=== PATIENT | female | born 1985 | race Caucasian/White ===

== ENCOUNTER 2019-02-18 12:12 | Emergency (ER) | payer BC ==
--- OUTSIDE RECORDS SUMMARY | 2019-02-18 12:56 | XMS REPORT | Summary of Care ---
:1985 Author Organization [facility] Address [address] [facility] [address] [address] Care Team Providers Name Role Phone Chika Calle [facility] Primary Care Provider Reason for Referral Refer to Department Only (Routine) Status Reason Specialty Diagnoses / Procedures Referred By Referred To Contact Contact Closed Physical Therapy Diagnoses Lumbar back pain with radiculopathy affecting right lower extremity Chika Calle [facility] [address] [place] [address] MRI/CAT/PET Scan (Routine) Status Reason Specialty Diagnoses / Referred By Referred To Procedures Contact Contact Pending Review Diagnoses Lumbar back pain with radiculopathy affecting right lower extremity Chelsi Calle MR LUMBAR SPINE WO CONTRAST Chika [facility] [address] [facility] [address] [place], [place] [id number] Refer to Department Only (Routine) Status Reason Specialty Diagnoses / Referred By Referred To Procedures Contact Contact Authorized NEUROSURGERY / Diagnoses Lumbar back pain with radiculopathy affecting right lower extremity DENY Calle, Calvin [facility] [id number] [place], [place] Phone: [phone] Scheduling Instructions To refer a patient to the [facility] please call [phone] Please have the following ready: -Symptoms of patient being referred -Recent films if available, NOT REQUIRED! -Known prior sugeries Reason for Visit Reason Comments Back Pain Pain goes down right leg Encounter Details Date Type Department Care Team Description 01/17/2019 Office Visit [facility] [place], Lumbar back pain with radiculopathy affecting right lower extremity (Primary Dx); [address] Chika, NURSING TECH-BC Situational [place] [address] [address] [phone] [address] [place] [address] [phone] Allergies No Known Allergiesdocumented as of this encounter (statuses as of 01/17/2019) Medications Medication Sig Dispensed Refills Start Date End Date Status HYDROcodone-Ibupro Take 1 Tab by 10 Tab 0 11/14/2018 Active fen (VICOPROFEN) mouth EVERY 7.5-200 MG Oral SIX HOURS TabIndications: NEEDED Oral abscess (dental pain). Max Daily Amount: 4 Tabs. methocarbamol Take 1 Tab by 40 Tab 0 01/17/2019 Active (ROBAXIN) 500 MG mouth THREE Oral TIMES DAILY TabIndications: NEEDED Lumbar back pain (low back with radiculopathy pain). affecting right lower extremity predniSONE Take 1 Tab by 30 Tab 0 01/17/2019 Active (DELTASONE) 10 MG mouth 9 Oral DIRECTED for TabIndications: 12 days. 4 Lumbar back pain tabs X 3 with radiculopathy days,3 tabs X affecting right 3 days,2 tabs lower extremity X 3 days,1 tab X 3 days.Take with food. escitalopram Take 1 Tab by 30 Tab 3 01/17/2019 Active (LEXAPRO) 20 MG mouth DAILY. Oral TabIndications: Situational depression escitalopram Take 1 Tab by 30 Tab 5 11/01/2018 Discontinued (LEXAPRO) 10 MG mouth DAILY. 9 (Reorder) Oral TabIndications: Situational depression AMOXICILLIN Take by 0 Discontinued POIndications: mouth TWICE 9 (Patient stopped Oral abscess DAILY. the medication) Clindamycin HCl Take 1 Cap by 30 Cap 0 11/14/2018 Discontinued 300 MG Oral mouth THREE 9 (Patient stopped CapIndications: TIMES DAILY. the medication) Oral abscess documented as of this encounter (statuses as of 01/17/2019) Active Problems Problem Noted Date BMI 30.0-30.9,adult 10/22/2017 documented as of this encounter (statuses as of 01/17/2019) Resolved Problems Problem Noted Date Resolved Date Injury, other and unspecified, unspecified site 11/04/2004 03/10/2016 documented as of this encounter (statuses as of 01/17/2019) Social History Tobacco Use Types Packs/Day Years Used Date Former Smoker Cigarettes Quit: 10/23/2011 Smokeless Tobacco: Never Used Tobacco Cessation: Counseling Given: No Alcohol Use Drinks/Week oz/Week Comments Yes ocasionally socially Sex Assigned at Date Recorded Not on file Job Start Date Occupation Industry Not on file Not on file Not on file Travel History Travel Start Travel End No recent travel history available. documented as of this encounter Last Filed Vital Signs Vital Sign Reading Time Taken Comments Blood Pressure 130/86 01/17/2019 11:35 AM EST Pulse 103 01/17/2019 11:35 AM EST Temperature 36.7 01/17/2019 11:35 AM EST C (98.1 F) Respiratory Rate 18 01/17/2019 11:35 AM EST Oxygen Saturation 96% 01/17/2019 11:35 AM EST Inhaled Oxygen Concentration - - Weight 85.5 kg (188 lb 9.6 oz) 01/17/2019 11:35 AM EST Height 162.6 cm (5' 4") 01/17/2019 11:35 AM EST Body Mass Index 32.37 01/17/2019 11:35 AM EST documented in this encounter Patient Instructions Patient InstructionsChika Calle NURSING TECH-BC - 01/17/2019 11:20 AM EST Lower Back Exercises WHAT YOU NEED TO KNOW: Lower back exercises help heal and strengthen your back muscles to prevent another injury. Ask your healthcare provider if you need to see a physical therapist for more advanced exercises. DISCHARGE INSTRUCTIONS: Return to the emergency department if: You have severe pain that prevents you from moving. Contact your healthcare provider if: Your pain becomes worse. You have new pain. You have questions or concerns about your condition or care. Do lower back exercises safely: Do the exercises on a mat or firm surface (not on a bed) to support your spine and prevent lowback pain. Move slowly and smoothly. Avoid fast or jerky motions. Breathe normally. Do not hold your breath. Stop if you feel pain. It is normal to feel some discomfort at first. Regular exercise will help decrease your discomfort over time. Lower back exercises: Your healthcare provider may recommend that you do back exercises 10 to 30 minutes each day. He may also recommend that you do exercises 1 to 3 times each day. Ask your healthcare provider which exercises are best for you and how often to do them. Ankle pumps: Lie on your back. Move your foot up (with your toes pointing toward your head). Then, move your foot down (with your toes pointing away from you). Repeat this exercise 10 times on each side. Heel slides: Lie on your back. Slowly bend one leg and then straighten it. Next, bend the other leg and then straighten it. Repeat 10 times on each side. Pelvic tilt: Lie on your back with your knees bent and feet flat on the floor. Place your armsin a relaxed position beside your body. Tighten the muscles of your abdomen and flatten your back against the floor. Hold for 5 seconds. Repeat 5 times. Back stretch: Lie on your back with your hands behind your head. Bend your knees and turn the lower half of your body to one side. Hold this position for 10 seconds. Repeat 3 times on each side. Straight leg raises: Lie on your back with one leg straight. Bend the other knee. Tighten yourabdomen and then slowly lift the straight leg up about 6 to 12 inches off the floor. Hold for 1 to 5seconds. Lower your leg slowly. Repeat 10 times on each leg. Llin-qi-jpsec: Lie on your back with your knees bent and feet flat on the floor. Pull one of your knees toward your chest and hold it there for 5 seconds. Return your leg to the starting position. Lift the other knee toward your chest and hold for 5 seconds. Do this 5 times on each side. Cat and camel: Place your hands and knees on the floor. Arch your back upward toward the ceiling and lower your head. Round out your spine as much as you can. Hold for 5 seconds. Lift your head upward and push your chest downward toward the floor. Hold for 5 seconds. Do 3 sets or as directed. Wall squats: Stand with your back against a wall. Tighten the muscles of your abdomen. Slowly lower your body until your knees are bent at a 45 degree angle. Hold this position for 5 seconds. Slowly move back up to a standing position. Repeat 10 times. Curl up: Lie on your back with your knees bent and feet flat on the floor. Place your hands, palms down, underneath the curve in your lower back. Next, with your elbows on the floor, lift your shoulders and chest 2 to 3 inches. Keep your head in line with your shoulders. Hold this position for 5seconds. When you can do this exercise without pain for 10 to 15 seconds, you may add a rotation. While your shoulders and chest are lifted off the ground, turn slightly to the left and hold. Repeat onthe other side. Bird dog: Place your hands and knees on the floor. Keep your wrists directly below your shoulders and your knees directly below your hips. Pull your belly button in toward your spine. Do not flatten or arch your back. Tighten your abdominal muscles. Raise one arm straight out so that it is aligned with your head. Next, raise the leg opposite your arm. Hold this position for 15 seconds. Lower your arm and leg slowly and change sides. Do 5 sets. 2016 [employer]. Information is for End User's use only and may not be sold, redistributed or otherwise used for commercial purposes. All illustrations and images included in CareNotes are the copyrighted property of [employer]. or [employer]. The above information is an dental aide only. It is not intended as medical advice for individual conditions or treatments. Talk to your doctor, nurse or pharmacist before following any medical regimen to see if it is safe and effective for you. documented in this encounter Progress Notes Chika Calle FNP-BC - 01/17/2019 11:20 AM EST María Elena Jojo Kumari [id number] 1985 Date of encounter: 01/17/2019 Chief Complaint Patient presents with Back Pain Pain goes down right leg HPI: María Elena Jojo Kumari presents today with symptoms as listed in the chief complaint. She reportsabout 4 to 5 months ago she had a worsening in her baseline back pain. She reports a long history of scoliosis and back pain. She states the pain is essentially constant and worsened by standing or walking. She reports her pain is in her right low back and radiates into her foot. She states it wasoriginally just in her arch and now it is in her toes the pain is shooting and not rated today. Shehas been to the chiropractor and had x-rays and but has been getting adjustments 1-2 times a week for the past month. He has also tried ibuprofen and some leftover hydrocodone ibuprofens from a oral abscess and reportsthat neither of these agents are helping her pain. She also remarks the new medication for her depression does not seem to be having much effect. Her life remains very stressful. 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 Was not able to get oral abscess/tooth extraction done. Recently had to revisit court with an increase child support payment to $1600 from current family. PAST MEDICAL HISTORY: History reviewed. No pertinent past medical history. FAMILY HISTORY: Family History Problem Relation Age of Onset Hypertension Mother Genitourinary () Mother cervical poylps Diabetes Father High Cholesterol Father Hypertension Father SOCIAL HISTORY: Social History Socioeconomic History Marital status: Single Spouse name: Not on file Number of children: Not on file Years of education: Not on file Highest education level: Not on file Occupational History Not on file Social Needs Financial resource strain: Not on file Food insecurity: Worry: Not on file Inability: Not on file Transportation needs: Medical: Not on file Non-medical: Not on file Tobacco Use Smoking status: Former Smoker Types: Cigarettes Last attempt to quit: 10/23/2011 Years since quittin.2 Smokeless tobacco: Never Used Substance and Sexual Activity Alcohol use: Yes Comment: ocasionally socially Drug use: No Sexual activity: Yes Partners: Male control/protection: Surgical Comment: tubal ligation Lifestyle Physical activity: Days per week: Not on file Minutes per session: Not on file Stress: Not on file Relationships Social connections: Talks on phone: Not on file Gets together: Not on file Attends uatsdin service: Not on file Active member of club or organization: Not on file Attends meetings of clubs or organizations: Not on file Relationship status: Not on file Intimate partner violence: Fear of current or ex partner: Not on file Emotionally abused: Not on file Physically abused: Not on file Forced sexual activity: Not on file Other Topics Concern Back Care Not Asked Bike Helmet Not Asked Blood Transfusions Not Asked Caffeine Concern Not Asked Exercise Not Asked Hobby Hazards Not Asked International Travel Not Asked Service Not Asked Occupational Exposure Not Asked Seat Belt Not Asked Self-Exams Not Asked Sleep Concern Not Asked Special Diet Not Asked Stress Concern Not Asked Weight Concern Not Asked Social History 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 These were updated on 01/17/2019 12:18. ROS: Pertinent items are noted in the History of Present Illness. PE: BP 130/86 | Pulse 103 | Temp 98.1 F (36.7 C) | Resp 18 | Ht 5' 4" ( 1.626 m) | Wt 188 lb9.6 oz (85.5 kg) | SpO2 96% | BMI 32.37 kg/m General appearance - alert, well appearing, and in no distress Mental Status - normal mood, behavior, speech, dress, motor activity, and thought processes Skin - normal coloration and turgor, no rashes, no suspicious skin lesions noted Musc: Spine is with slight thoracic curvature, no tenderness to palpation, bilateral positive leg raise right greater than left ASSESSMENT/PLAN: María Elena Uribe was seen today for back pain. Diagnoses and all orders for this visit: Lumbar back pain with radiculopathy affecting right lower extremity advised rest , stretching/PT, muscle relaxant and anti-inflammatory will assist in healing, advised to follow-up with back pain centeras well for evaluation for additional intervention - REFER TO BACK PAIN REFERRAL CENTER; Future - MR LUMBAR SPINE WO CONTRAST; Future - XR LUMBAR SPINE MIN 4 VIEWS (STANDARD); Future - methocarbamol (ROBAXIN) 500 MG Oral Tab; Take 1 Tab by mouth THREE TIMES DAILY NEEDED (low back pain). Patient advised not to operate heavy equipment , machinery or vehicle while taking muscle relaxant. - predniSONE (DELTASONE) 10 MG Oral Tab; Take 1 Tab by mouth DIRECTED for 12 days. 4 tabs X 3days,3 tabs X 3 days,2 tabs X 3 days,1 tab X 3 days.Take with food. The potential side effects of this medication have been discussed with the patient. Call if any significant problems with these areexperienced. - REFER TO PHYSICAL THERAPY / REHAB Situational depression -INCREASE escitalopram (LEXAPRO) 20 MG Oral Tab; Take 1 Tab by mouth DAILY. Notify patient of lab results when available and advise regarding follow up to revise plan of care. Follow-up regarding depression in 3 months, sooner as needed. All questions and concerns were answered and Patient understands and agrees with the plan. Patient Instructions Lower Back Exercises WHAT YOU NEED TO KNOW: Lower back exercises help heal and strengthen your back muscles to prevent another injury. Ask your healthcare provider if you need to see a physical therapist for more advanced exercises. DISCHARGE INSTRUCTIONS: Return to the emergency department if: You have severe pain that prevents you from moving. Contact your healthcare provider if: Your pain becomes worse. You have new pain. You have questions or concerns about your condition or care. Do lower back exercises safely: Do the exercises on a mat or firm surface (not on a bed) to support your spine and prevent lowback pain. Move slowly and smoothly. Avoid fast or jerky motions. Breathe normally. Do not hold your breath. Stop if you feel pain. It is normal to feel some discomfort at first. Regular exercise will help decrease your discomfort over time. Lower back exercises: Your healthcare provider may recommend that you do back exercises 10 to 30 minutes each day. He may also recommend that you do exercises 1 to 3 times each day. Ask your healthcare provider which exercises are best for you and how often to do them. Ankle pumps: Lie on your back. Move your foot up (with your toes pointing toward your head). Then, move your foot down (with your toes pointing away from you). Repeat this exercise 10 times on each side. Heel slides: Lie on your back. Slowly bend one leg and then straighten it. Next, bend the other leg and then straighten it. Repeat 10 times on each side. Pelvic tilt: Lie on your back with your knees bent and feet flat on the floor. Place your armsin a relaxed position beside your body. Tighten the muscles of your abdomen and flatten your back against the floor. Hold for 5 seconds. Repeat 5 times. Back stretch: Lie on your back with your hands behind your head. Bend your knees and turn the lower half of your body to one side. Hold this position for 10 seconds. Repeat 3 times on each side. Straight leg raises: Lie on your back with one leg straight. Bend the other knee. Tighten yourabdomen and then slowly lift the straight leg up about 6 to 12 inches off the floor. Hold for 1 to 5seconds. Lower your leg slowly. Repeat 10 times on each leg. Mmtm-jp-mchno: Lie on your back with your knees bent and feet flat on the floor. Pull one of your knees toward your chest and hold it there for 5 seconds. Return your leg to the starting position. Lift the other knee toward your chest and hold for 5 seconds. Do this 5 times on each side. Cat and camel: Place your hands and knees on the floor. Arch your back upward toward the ceiling and lower your head. Round out your spine as much as you can. Hold for 5 seconds. Lift your head upward and push your chest downward toward the floor. Hold for 5 seconds. Do 3 sets or as directed. Wall squats: Stand with your back against a wall. Tighten the muscles of your abdomen. Slowly lower your body until your knees are bent at a 45 degree angle. Hold this position for 5 seconds. Slowly move back up to a standing position. Repeat 10 times. Curl up: Lie on your back with your knees bent and feet flat on the floor. Place your hands, palms down, underneath the curve in your lower back. Next, with your elbows on the floor, lift your shoulders and chest 2 to 3 inches. Keep your head in line with your shoulders. Hold this position for 5seconds. When you can do this exercise without pain for 10 to 15 seconds, you may add a rotation. While your shoulders and chest are lifted off the ground, turn slightly to the left and hold. Repeat onthe other side. Bird dog: Place your hands and knees on the floor. Keep your wrists directly below your shoulders and your knees directly below your hips. Pull your belly button in toward your spine. Do not flatten or arch your back. Tighten your abdominal muscles. Raise one arm straight out so that it is aligned with your head. Next, raise the leg opposite your arm. Hold this position for 15 seconds. Lower your arm and leg slowly and change sides. Do 5 sets. 2016 [employer]. Information is for End User's use only and may not be sold, redistributed or otherwise used for commercial purposes. All illustrations and images included in CareNotes are the copyrighted property of [employer], [employer]. or [employer]. The above information is an dental aide only. It is not intended as medical advice for individual conditions or treatments. Talk to your doctor, nurse or pharmacist before following any medical regimen to see if it is safe and effective for you. NANCY Patel 01/17/2019 12:18 documented in this encounter Plan of Treatment Date Type Specialty Care Team Description 01/25/2019 Appointment Radiology 02/06/2019 Office Visit Neurosurgery Tye Ray MD [address] [address] Name Type Priority Associated Diagnoses Order Schedule MR LUMBAR SPINE WO Imaging Routine Lumbar back pain with Expected: 2018, CONTRAST radiculopathy affecting Expires: 01/17/2020 right lower extremity XR LUMBAR SPINE MIN Imaging Routine Lumbar back pain with 1 Occurrences starting 4 VIEWS (STANDARD) radiculopathy affecting 01/17/2019 until right lower extremity 01/17/2020 Name Type Priority Associated Diagnoses Order Schedule REFER TO BACK PAIN Referral Routine Lumbar back pain with Expected: REFERRAL CENTER radiculopathy affecting 01/17/2019, Expires: right lower extremity 01/18/2020 REFER TO PHYSICAL Referral Routine Lumbar back pain with Ordered: 2018 THERAPY / REHAB radiculopathy affecting right lower extremity Health Maintenance Due Date Last Done Comments DEPRESSION SCREENING 10/25/2019 10/24/2018 HIV SCREENING 10/25/2019 Postponed from 1998 (Patient refused) INFLUENZA VACCINE (#1) 2019 Postponed from 10/09/2018 (Patient refused) PAP SMEAR 10/25/2019 Postponed from 2004 (Discuss again after) HPV IMMUNIZATION SERIES Aged Out No longer eligible based on patient's age to complete this topic MENINGOCOCCAL VACCINE IMM Aged Out No longer eligible based on patient's age to complete this topic PNEUMOCOCCAL 0-64 YRS Aged Out No longer eligible based on patient's age to complete this topic documented as of this encounter Goals Goal Patient Goal Associated Recent Patient-Stated? Author Type Problems Progress Depression Depression No radha Calle (PHQ-9) Chika, total score < 5 [facility] Note: This is an individualized treatment (depression) goal for María Elena Kumari: Displayed above is your goal for a depression screening (PHQ-9) score that would indicate good control of your depression. Keep a regular sleep schedule Lifestyle No Chika Calle FNP-BC Note: This is an individualized lifestyle goal for María Elena Kumari: Please maintain a regular sleep schedule. This may help with some symptoms of depression. Take all prescribed medications as Self-management No Chika Calle FNP-BC directed Note: This is an individualized self-management goal for María Elena Kumari: Please take all prescribed medications as directed. 1. Do not skip doses. If you cannot afford your medications, talk with your doctor. 2. Use a pill reminder system such as a pill box if needed. Your pharmacist can help you with this. 3. Contact your Pharmacy 5 days before your medication runs out. If you cannot take your medications for any reasons, talk with your doctor. 4. Please bring all of your medication bottles and inhalers (or a list of all your medications/inhalers) with you to every visit. Potential barriers to meeting all of your care plan goals will continue to be addressed on an ongoing basis. documented as of this encounter Results Not on filedocumented in this encounter Visit Diagnoses Diagnosis Lumbar back pain with radiculopathy affecting right lower extremity - Primary Situational depression documented in this encounter Insurance Payer Benefit Plan / Subscriber ID Effective Dates Phone Address Type Group [place]VIN CAMACHOBS xxxxxxxxxxxx 2014-Present [employer] (Work) [id number] documented as of this encounter
--- OUTSIDE RECORDS SUMMARY | 2019-02-18 12:56 | XMS REPORT | Summary of Care ---
:1985 Author Organization [facility] Address 1 [facility] [place] [address] Care Team Providers Name Role Phone Chika Calle SERVICE AIDE-BC Primary Care Provider Reason for Referral MRI/CAT/PET Scan (Routine) Status Reason Specialty Diagnoses / Procedures Referred By Contact Referred To Contact Closed Diagnoses Lumbar back pain with radiculopathy affecting right lower extremity Chika Calle [facility] Mr Procedures MR LUMBAR SPINE WO CONTRAST SERVICE AIDE-BC [address] [place] [id number] [place] [address] [place] [address] Phone: Reason for Visit MRI/CAT/PET Scan (Routine) Status Reason Specialty Diagnoses / Procedures Referred By Contact Referred To Contact Closed Diagnoses Lumbar back pain with radiculopathy affecting right lower extremity Chika Calle [facility] Mr Procedures MR LUMBAR SPINE WO CONTRAST SERVICE AIDE-BC 1 [facility] [address] [place] [id number] [place] [address] Phone: Encounter Details Date Type Department Care Team Description 01/25/2019 Hospital Encounter Delano Mari MR Outpatient 1 [facility] [place] [address] Allergies No Known Allergiesdocumented as of this encounter (statuses as of 01/27/2019) Medications Medication Sig Dispensed Refills Start Date End Date Status HYDROcodone-Ibuprofen Take 1 Tab by 10 Tab 0 11/14/2018 Active (VICOPROFEN) 7.5-200 mouth EVERY SIX MG Oral HOURS NEEDED TabIndications: Oral (dental pain). abscess Max Daily Amount: 4 Tabs. methocarbamol Take 1 Tab by 40 Tab 0 01/17/2019 Active (ROBAXIN) 500 MG Oral mouth THREE TabIndications: Lumbar TIMES DAILY back pain with NEEDED (low back radiculopathy pain). affecting right lower extremity predniSONE (DELTASONE) Take 1 Tab by 30 Tab 0 01/17/2019 01/29/2019 Active 10 MG Oral mouth TabIndications: Lumbar DIRECTED for 12 back pain with days. 4 tabs X 3 radiculopathy days,3 tabs X 3 affecting right lower days,2 tabs X 3 extremity days,1 tab X 3 days.Take with food. escitalopram (LEXAPRO) Take 1 Tab by 30 Tab 3 01/17/2019 Active 20 MG Oral mouth DAILY. TabIndications: Situational depression documented as of this encounter (statuses as of 01/27/2019) Active Problems Problem Noted Date BMI 30.0-30.9,adult 10/22/2017 documented as of this encounter (statuses as of 01/27/2019) Resolved Problems Problem Noted Date Resolved Date Injury, other and unspecified, unspecified site 11/04/2004 03/10/2016 documented as of this encounter (statuses as of 01/27/2019) Social History Tobacco Use Types Packs/Day Years Used Date Former Smoker Cigarettes Quit: 10/23/2011 Smokeless Tobacco: Never Used Alcohol Use Drinks/Week oz/Week Comments Yes ocasionally socially Sex Assigned at Date Recorded Not on file Job Start Date Occupation Industry Not on file Not on file Not on file Travel History Travel Start Travel End No recent travel history available. documented as of this encounter Last Filed Vital Signs Not on filedocumented in this encounter Plan of Treatment Date Type Specialty Care Team Description 02/06/2019 Office Visit Neurosurgery Tye Ray MD 1 [place] [address] [phone] Name Type Priority Associated Diagnoses Date/Time MR LUMBAR SPINE WO Imaging Routine Lumbar back pain with 01/25/2019 7:47 PM CONTRAST radiculopathy affecting EST right lower extremity Name Type Priority Associated Diagnoses Order Schedule MR LUMBAR SPINE WO Imaging Routine Lumbar back pain with 1 Occurrences starting CONTRAST radiculopathy affecting 01/25/2019 until right lower extremity 01/25/2019 Health Maintenance Due Date Last Done Comments DTaP/Tdap/Td Vaccines (1 - Tdap) 1994 DEPRESSION SCREENING 10/25/2019 10/24/2018 HIV SCREENING 10/25/2019 Postponed from 1998 (Patient refused) INFLUENZA VACCINE (#1) 2019 Postponed from 10/09/2018 (Patient refused) PAP SMEAR 10/25/2019 Postponed from 2004 (Discuss again after) HEPATITIS A IMMUNIZATION SERIES Aged Out No longer eligible based on patient's age to complete this topic HPV IMMUNIZATION SERIES Aged Out No longer [...] Calle (PHQ-9) Chika, total score < 5 SERVICE AIDE-BC Note: This is an individualized treatment (depression) goal for María Elena Kumari: Displayed above is your goal for a depression screening (PHQ-9) score that would indicate good control of your depression. Keep a regular sleep schedule Lifestyle No Chika Calle, SERVICE AIDE-BC Note: This is an individualized lifestyle goal for María Elena Kumari: Please maintain a regular sleep schedule. This may help with some symptoms of depression. Take all prescribed medications as Self-management No Chika Calle , SERVICE AIDE-BC directed Note: This is an individualized self-management [...] pain with radiculopathy affecting right lower extremity documented in this encounter Insurance Payer Benefit Plan / Subscriber ID Effective Dates Phone Address Type Group PARVIN CAMACHOBS PARVIN CAMACHOBS xxxxxxxxxxxx 2014-Present [employer] (Work) [id number] documented as of this encounter
--- OUTSIDE RECORDS SUMMARY | 2019-02-18 12:56 | XMS REPORT | Summary of Care ---
:1985 Author Organization [facility] Address 1 [facility] [place] [address] Care Team Providers Name Role Phone Chika Calle [facility] Primary Care Provider Reason for Visit Reason Comments Cough Leg Pain Encounter Details Date Type Department Care Team Description 02/13/2019 Office Visit [facility] [place] Lumbar back pain with radiculopathy affecting right lower extremity (Primary Dx); [address] [facility] [place] [address] [address] [phone] [address] [place] [address] [phone] Allergies No Known Allergiesdocumented as of this encounter (statuses as of 02/13/2019) Medications Medication Sig Dispensed Refills Start Date End Date Status escitalopram Take 1 Tab by 30 Tab 3 01/17/2019 Active (LEXAPRO) 20 MG mouth DAILY. Oral TabIndications: Situational depression predniSONE Take 1 Tab by 30 Tab 0 02/13/2019 02/25/2019 Active (DELTASONE) 10 MG mouth Oral DIRECTED for TabIndications: 12 days. 4 Lumbar back pain tabs X 3 with radiculopathy days,3 tabs X affecting right 3 days,2 tabs lower extremity X 3 days,1 tab X 3 days.Take with food. gabapentin Take 3 Caps by 30 Cap 0 02/13/2019 Active (NEURONTIN) 100 MG mouth TWICE Oral DAILY. 300 mg CapIndications: in pm and 300 Lumbar back pain mg in am with radiculopathy affecting right lower extremity metaxalone Take 1 Tab by 30 Tab 0 02/13/2019 Active (SKELAXIN) 800 MG mouth THREE Oral TIMES DAILY TabIndications: NEEDED (back Lumbar back pain pain). with radiculopathy affecting right lower extremity Amoxicillin 500 MG Take 1 Tab by 20 Tab 0 02/13/2019 02/23/2019 Active Oral mouth TWICE TabIndications: DAILY for 10 Acute bacterial days. sinusitis HYDROcodone-Ibuprof Take 1 Tab by 10 Tab 0 11/14/2018 02/13/2019 Discontinued en (VICOPROFEN) mouth EVERY 7.5-200 MG Oral SIX HOURS TabIndications: NEEDED (dental Oral abscess pain). Max Daily Amount: 4 Tabs. methocarbamol Take 1 Tab by 40 Tab 0 01/17/2019 02/13/2019 Discontinued (ROBAXIN) 500 MG mouth THREE Oral TIMES DAILY TabIndications: NEEDED (low Lumbar back pain back pain). with radiculopathy affecting right lower extremity gabapentin Take 300 mg by 0 02/13/2019 Discontinued (NEURONTIN) 300 MG mouth THREE Oral Cap TIMES DAILY. documented as of this encounter (statuses as of 02/13/2019) Active Problems Problem Noted Date BMI 30.0-30.9,adult 10/22/2017 documented as of this encounter (statuses as of 02/13/2019) Resolved Problems Problem Noted Date Resolved Date Injury, other and unspecified, unspecified site 11/04/2004 03/10/2016 documented as of this encounter (statuses as of 02/13/2019) Social History Tobacco Use Types Packs/Day Years [...] Sign Reading Time Taken Comments Blood Pressure 128/94 02/13/2019 2:31 PM EST Pulse 96 02/13/2019 2:31 PM EST Temperature 37 02/13/2019 2:31 PM EST C (98.6 F) Respiratory Rate - - Oxygen Saturation 98% 02/13/2019 2:31 PM EST Inhaled Oxygen Concentration - - Weight 86.3 kg (190 lb 4.8 oz) 02/13/2019 2:31 PM EST Height 162.6 cm (5' 4") 02/13/2019 2:31 PM EST Body Mass Index 32.66 02/13/2019 2:31 PM EST documented in this encounter Patient Instructions Patient InstructionsChika Calle FNP-BC - 02/13/2019 2:20 PM ESTTake 300 mg of gabapentin In am and pm -- take steroid with food -- be cautious with ibuprofen while taking this can still take tylenol up to 4000 mg per day documented in this encounter Progress Notes Chika Calle FNP-BC - 02/13/2019 2:20 PM EST María Elena Kumari [id number] 1985 02/13/2019 PCP: Chika Calle Chief Complaint Patient presents with Cough Leg Pain HPI: María Elena Kumari is a 33-y.o. female who presents today for follow-up of low back pain with radiculopathy into her right leg. She has had MRI with appointment scheduled with neurosurgery for 02/16/2019. Recently she saw another provider in this office on 02/02/2019 and was prescribed Neurontin 300 mg nightly. She states her pain is worse at night and she cannot sleep. She admits she stopped taking Neurontinafter 2 nights. States she resumed it x2-3 nights took 4 Neurontin instead of 3 and this did give her some relief in her pain but she still has pain rated as 9 out of 10. She has been calling the office stating she has restless legs reporting her legs feel as if they have to move and that her symptoms are changing she now has [id number] in the night and in addition to just going down her right leg it goes up her spine. She feels when she changes position it is a pulsating pain. She states no position is comfortable and has to sit most of the time and when ambulating she cannot work more than 10 feet and has to stop midway going upstairs. She denies any red flag symptoms In addition Neurontin she is taking Tylenol 1000 mg and ibuprofen 400 mg with little relief in her pain. She reports since her last appointment she has had lingering upper respiratory infection symptoms -- nasal congestion, dry cough, no wheezing or shortness of breath , low grade fevers -- The coughingaggravates her back - Her household has had JING bug, strep throat Patient Active Problem List Diagnosis BMI 30.0-30.9,adult No past medical history on file. Current Medications: Current Outpatient Medications Medication escitalopram (LEXAPRO) 20 MG Oral Tab gabapentin (NEURONTIN) 300 MG Oral Cap HYDROcodone-Ibuprofen (VICOPROFEN) 7.5-200 MG Oral Tab methocarbamol (ROBAXIN) 500 MG Oral Tab No Known Allergies Social History Tobacco Use Smoking status: Former Smoker Types: Cigarettes Last attempt to quit: 10/23/2011 Years since quittin.3 Smokeless tobacco: Never Used Substance Use Topics Alcohol use: Yes Comment: ocasionally socially Drug use: No Family History Problem Relation Age of Onset Hypertension Mother Genitourinary () Mother cervical poylps Diabetes Father High Cholesterol Father Hypertension Father Family Status Relation Name Status Mo Alive Fa Alive Bro older Alive Bro younger Alive I have reviewed the patients allergies, past medical, surgical and family history with the patient. These were updated on 02/13/2019 14:35. No results found for this visit on 02/13/19. ROS: As per HPI, a comprehensive review of systems was otherwise negative. PE: BP (!) 128/94 (BP Location: Right arm, Patient Position: Sitting) | Pulse 96 | Temp 98.6 F (37C) (Tympanic) | Ht 5' 4" (1.626 m) | Wt 190 lb 4.8 oz (86.3 kg) | SpO2 98% | BMI 32.66 kg/m CONST: Appears well, no distress, cooperative, weepy NEURO: alert, oriented, normal speech, no focal findings or movement disorder noted HEENT:Atraumatic, normocephalic,PERRLA and EOM's intact,conjunctiva pale, sclerae noninjected, bilateral TM's and external ear canals normal, nares normal and patent, no erythema, discharge or polyps, mucous membranes moist, pharynx normal without lesions, maxillary and frontal sinuses non tender to palpation NECK: full ROM, supple, no significant adenopathy CHEST: regular rate and rhythm, S1, S2 normal, no murmur, click, rub or gallop, clear to auscultation, no wheezes or rales and unlabored breathing Spine not examined as known disease present ASSESSMENT/PLAN: María Elena Uribe was seen today for cough and leg pain. Diagnoses and all orders for this visit: Lumbar back pain with radiculopathy affecting right lower extremity -TAKE predniSONE (DELTASONE) 10 MG Oral Tab; Take 1 Tab by mouth DIRECTED for 12 days. 4 tabs X 3 days,3 tabs X 3 days,2 tabs X 3 days,1 tab X 3 days.Take with food. - INCREASE gabapentin (NEURONTIN) 100 MG Oral Cap; Take 3 Caps by mouth TWICE DAILY. 300 mg in pm and 300 mg in am - SWITCH TO metaxalone (SKELAXIN) 800 MG Oral Tab; Take 1 Tab by mouth THREE TIMES DAILY NEEDED(back pain). Acute bacterial sinusitis - Amoxicillin 500 MG Oral Tab; Take 1 Tab by mouth TWICE DAILY for 10 days. Follow-up with neurosurgery as scheduled on 02/16/2019 and here as needed. Diagnosis and care plan discussed at length with patient is in agreement with this plan. and voices understanding with all questions answered. There are no Patient Instructions on file for this visit. NANCY Patel 02/13/2019 14:35 documented in this encounter Plan of Treatment Date Type Specialty Care Team Description 02/16/2019 Office Visit Neurosurgery Evans Barba MD [address] [place] [address] Health Maintenance Due Date Last Done Comments [...] Calle (PHQ-9) Chika, total score < 5 [facility]- Note: This is an individualized treatment (depression) [...] pain with radiculopathy affecting right lower extremity Acute bacterial sinusitis Acute sinusitis, unspecified documented in this encounter Insurance Payer Benefit Plan / Subscriber ID Effective Dates Phone Address Type Group PARVIN CAMACHOBS xxxxxxxxxxxx 2014-Present [employer] documented as of this encounter
--- OUTSIDE RECORDS SUMMARY | 2019-02-18 12:56 | XMS REPORT | Summary of Care ---
:1985 Author Organization [facility] Address 1 [facility] [place] [address] Care Team Providers Name Role Phone AlvaChika Galvez [facility] Primary Care Provider Reason for Visit Reason Comments Back Pain ongoing back pain. MRI done last wednesday. Robaxin is not helping at all. Encounter Details Date Type Department Care Team Description 02/02/2019 Office Visit [facility] Soren Case PA Lumbar back pain with [address] [place] [address] lower extremity (Primary [phone] [place] [address] Dx) [phone] Allergies No Known Allergiesdocumented as of this encounter (statuses as of 02/02/2019) Medications Medication Sig Dispensed Refills Start Date End Date Status HYDROcodone-Ibuprofen Take 1 Tab by 10 Tab 0 11/14/2018 Active (VICOPROFEN) 7.5-200 MG mouth EVERY SIX Oral TabIndications: HOURS NEEDED Oral abscess (dental pain). Max Daily Amount: 4 Tabs. methocarbamol (ROBAXIN) Take 1 Tab by 40 Tab 0 01/17/2019 Active 500 MG Oral mouth THREE TabIndications: Lumbar TIMES DAILY back pain with NEEDED (low back radiculopathy affecting pain). right lower extremity escitalopram (LEXAPRO) Take 1 Tab by 30 Tab 3 01/17/2019 Active 20 MG Oral mouth DAILY. TabIndications: Situational depression gabapentin (NEURONTIN) Take 3 Caps by 30 Cap 0 02/02/2019 Active 100 MG Oral mouth EVERY CapIndications: Lumbar BEDTIME. back pain with radiculopathy affecting lower extremity documented as of this encounter (statuses as of 02/02/2019) Active Problems Problem Noted Date BMI 30.0-30.9,adult 10/22/2017 documented as of this encounter (statuses as of 02/02/2019) Resolved Problems Problem Noted Date Resolved Date Injury, other and unspecified, unspecified site 11/04/2004 03/10/2016 documented as of this encounter (statuses as of 02/02/2019) Social History Tobacco Use Types Packs/Day Years [...] Sign Reading Time Taken Comments Blood Pressure 130/98 02/02/2019 11:52 AM EST Pulse 92 02/02/2019 11:52 AM EST Temperature 37.8 02/02/2019 11:52 AM C (100 EST F) Respiratory Rate - - Oxygen Saturation 97% 02/02/2019 11:52 AM EST Inhaled Oxygen Concentration - - Weight 85.6 kg (188 lb 11.2 oz) 02/02/2019 11:52 AM EST Height - - Body Mass Index 32.39 01/17/2019 11:35 AM EST documented in this encounter Patient Instructions Patient InstructionsSoren Case PA - 02/02/2019 11:40 AM ESTTake take 650mg tylenol when you get home with ibuprofen 600mg every 8 hours. Would try muscle relaxer 1.5 tabs this afternoon. Take 300mg gabapentin at bedtime. MRI not read yet. Call back tomorrow with response. documented in this encounter Progress Notes Soren Case PA - 02/02/2019 11:40 AM EST PATIENT: María Elena Kumari : 1985 DATE OF SERVICE: 02/02/2019 CHIEF COMPLAINT: Chief Complaint Patient presents with Back Pain ongoing back pain. MRI done last wednesday. Robaxin is not helping at all. Subjective HISTORY OF PRESENT ILLNESS: María Elena Kumari is a 33-y.o. female who presents the clinic due to ongoing back pain. She was seen by her PCP 2 weeks ago and MRI ordered. MRI completed last Wednesday, but has not been read yet.Reports worsening of her baseline back pain for the last 4 months. Reports some numbness/tingling to right lower leg that extends to medial toes and arch of foot. This symptom has been relatively constant. Worse with standing, heavy lifting or walking. No relief with ibuprofen, Vicoprofen, or Robaxin. Feels legs are very restless at night. Denies bowel/bladder incontinence. Denies foot drop ornew weakness to right leg. Does report a sensation of heaviness to right leg. Did have relief withhigher doses of prednisone. She completed a 12-day taper last week. She states this is been negatively affecting her mood due to symptoms not allowing her to get adequate sleep at night. She did also attempt a few low intensity exercises with little response. HPI No past medical history on file. Family History Problem Relation Age of Onset Hypertension Mother Genitourinary () Mother cervical poylps Diabetes Father High Cholesterol Father Hypertension Father Current Outpatient Medications Medication Sig escitalopram (LEXAPRO) 20 MG Oral Tab Take 1 Tab by mouth DAILY. gabapentin (NEURONTIN) 100 MG Oral Cap Take 3 Caps by mouth EVERY BEDTIME. HYDROcodone-Ibuprofen (VICOPROFEN) 7.5-200 MG Oral Tab Take 1 Tab by mouth EVERY SIX HOURS ASNEEDED (dental pain). Max Daily Amount: 4 Tabs. methocarbamol (ROBAXIN) 500 MG Oral Tab Take 1 Tab by mouth THREE TIMES DAILY NEEDED (low back pain). No current facility-administered medications for this visit. No Known Allergies Social History Socioeconomic History Marital status: Single Spouse name: Not on file Number of children: Not on file Years of education: Not on file Highest education level: Not on file Occupational History Not on file Social Needs Financial resource strain: Not on file Food insecurity Worry: Not on file Inability: Not on file Transportation needs Medical: Not on file Non-medical: Not on file Tobacco Use Smoking status: Former Smoker Types: Cigarettes Last attempt to quit: 10/23/2011 Years since quittin.2 Smokeless tobacco: Never Used Substance and Sexual Activity Alcohol use: Yes Comment: ocasionally socially Drug use: No Sexual activity: Yes Partners: Male control/protection: Surgical Comment: tubal ligation Lifestyle Physical activity Days per week: Not on file Minutes per session: Not on file Stress: Not on file Relationships Social connections Talks on phone: Not on file Gets together: Not on file Attends tenriism service: Not on file Active member of club or organization: Not on file Attends meetings of clubs or organizations: Not on file Relationship status: Not on file Intimate partner violence Fear of current or ex partner: Not [...] all well no special needs works for [employer] REVIEW OF SYSTEMS: Review of Systems Constitutional: Positive for malaise/fatigue. Negative for fever. Respiratory: Negative. Cardiovascular: Negative. Gastrointestinal: Negative. Genitourinary: Negative. Musculoskeletal: Positive for back pain. Negative for falls and neck pain. Neurological: Positive for tingling. Negative for tremors, sensory change and weakness. Psychiatric/Behavioral: Positive for depression. Objective PHYSICAL EXAM: VITALS: BP (!) 130/98 | Pulse 92 | Temp 100 F (37.8 C) (Tympanic) | Wt 188 lb 11.2 oz (85.6 kg) | SpO2 97% | BMI 32.39 kg/m Body mass index is 32.39 kg/m. Physical Exam Vitals signs reviewed. Constitutional: Comments: Well-developed, mildly obese, appears uncomfortable HENT: Head: Normocephalic and atraumatic. Cardiovascular: Rate and Rhythm: Normal rate and regular rhythm. Pulmonary: Effort: Pulmonary effort is normal. Breath sounds: Normal breath sounds. Musculoskeletal: Comments: Decreased passive straight leg raise on right. Spasm to right lower lumbar area noted with this maneuver. Tenderness to right lower lumbar area midclavicular line. Can appreciate tender muscle not to this area. No direct spinal tenderness Normal abduction of right hip. Normal DTR bilateral knees. No foot drop. Normal dorsiflexion and plantarflexion of right foot. Skin: General: Skin is warm and dry. Neurological: Gait: Gait normal. Deep Tendon Reflexes: Reflexes normal. ASSESSMENT / IMPRESSION: ICD-9-CM ICD-10-CM 1. Lumbar back pain with radiculopathy affecting lower extremity 724.4 M54.16 gabapentin (NEURONTIN)100 MG Oral Cap Plan Take take 650mg tylenol when you get home with ibuprofen 600mg. This can be repeated every 8 hours as needed. Would try muscle relaxer 1.5 tabs this afternoon. Take 300mg gabapentin at bedtime. Discussed medication and side effects. Cautioned on driving withconcurrent use of gabapentin or muscle relaxants until you know how they affect you. MRI not read yet. Call back tomorrow with response. Follow-up neurosurgery Wednesday. Author: ELVIN Gentile 02/02/2019 12:35 documented in this encounter Plan of Treatment Date Type Specialty Care Team Description 02/06/2019 Office Visit Neurosurgery Tye Ray MD [address] [place] [address] [phone] Health Maintenance Due Date Last Done Comments [...] Calle (PHQ-9) Chika, total score < 5 [facility]- Note: This is an individualized treatment (depression) goal for María Elena Kumari: Displayed above is your goal for a depression screening (PHQ-9) score that would indicate good control of your depression. Keep a regular sleep schedule Lifestyle No Chika Calle, MOTOR WINDER-BC Note: This is an individualized lifestyle goal for María Elena Kumari: Please maintain a regular sleep schedule. This may help with some symptoms of depression. Take all prescribed medications as Self-management No Chika Calle , MOTOR WINDER-BC directed Note: This is an individualized self-management [...] Diagnosis Lumbar back pain with radiculopathy affecting lower extremity documented in this encounter Insurance Payer Benefit Plan / Subscriber ID Effective Dates Phone Address Type Group [employer] PARVIN CAMACHOBS xxxxxxxxxxxx 2014-Present [employer] (Work) [id number] documented as of this encounter"
[2019-02-18] MEDS ORDERED: Dexamethasone IV* 4 MG/ML 1 ML (4 MG) IV SLOW PU ONE (13:59)
[2019-02-18] MEDS ORDERED: Ketorolac INJ* 30 MG/ML 1 ML VIAL IV PUSH ONE (13:59)
[2019-02-18] MEDS ORDERED: Morphine 4 MG/ML VIAL (1 ml) 4 MG/ML VIAL IV ONE (14:00)
--- NOTE | 2019-02-18 14:05 | ED ---
Back Pain - HPI Summary HPI Summary: Pt. is a 33 y.o female who presents to the ER for increased low back pain. Pt. states she started having low back pain about 6 months ago. Pt. denies any initial injuries or falls. Pt. states she has been seeing a neurosurgeon at [place]. Pt. had an MRI last month and states she has herniated disc. Pt. currently taking prednisone, skelaxin, gabapentin, and ibuprofen. Pt. states her pain has been worse over the last few days and presents to the ER for re- evaluation. Pt. notes she has had a low grade fever as well and is currently on amoxicillin for a sinus infection. Pt. denies cough, abd. pain, dysuria, leg weakness, loss of bowel or bladder function. No other past hx. Pt. states pain is so severe today that she cannot walk. Sxs are mild-moderate in severity. Movement makes sxs worse. Nothing makes sxs better. - History of Current Complaint Chief Complaint: EDBackInjuryPain Stated Complaint: SCIATICA PAIN Time Seen by Provider: 02/18/19 13:29 Hx Obtained From: Patient Hx Last Menstrual Period: 3 weeks ago Pain Intensity: 9 - Allergies/Home Medications Allergies/Adverse Reactions: Allergies Allergy/AdvReac Type Severity Reaction Status Date / Time No Known Allergies Allergy Verified 02/18/19 12:50 Home Medications: Home Medications Amoxicillin PO (*) [Amoxicillin 500 MG CAP*] 500 mg PO DAILY 02/18/19 [History Confirmed 02/18/19] Escitalopram * [Lexapro *] 20 mg PO DAILY 02/18/19 [History Confirmed 02/18/19] Gabapentin CAP(*) [Neurontin 100 mg CAP(*)] 100 mg PO TID 02/18/19 [History Confirmed 02/18/19] Metaxalone TAB* [Skelaxin TAB*] 800 mg PO TID 02/18/19 [History Confirmed ] predniSONE 10 mg TAB [Deltasone 10 MG TAB*] 10 mg PO DAILY 02/18/19 [History Confirmed 02/18/19] PMH/Surg Hx/FS Hx/Imm Hx Previously Healthy: Yes Endocrine/Hematology History: Denies: Hx Diabetes, Hx Sickle Cell Disease, Hx Thyroid Disease Cardiovascular History: Denies: Hx Hypertension, Other Cardiovascular Problems/Disorders Respiratory History: Denies: Hx Asthma, Hx Chronic Obstructive Pulmonary Disease (COPD), Other Respiratory Problems/Disorders GI History: Denies: Hx Ulcer, Other GI Disorders History: Denies: Other Problems/Disorders Musculoskeletal History: Denies: Other Musculoskeletal History Sensory History: Reports: Hx Contacts or Glasses - GLASSES Denies: Hx Hearing Aid Opthamlomology History: Reports: Hx Contacts or Glasses - GLASSES Neurological History: Denies: Other Neuro Impairments/Disorders Psychiatric History: Reports: Hx Anxiety - Surgical History Surgery Procedure, Year, and Place: bilat tubes in ears and adenoids/mastoid bone surgery as young child Hx Anesthesia Reactions: No Infectious Disease History: No Infectious Disease History: Denies: Hx Hepatitis, Hx Human Immunodeficiency Virus (HIV), Traveled Outside the [place] in Last 30 Days - Family History Known Family History: Positive: Non-Contributory - Social History Occupation: Works From/At Home Lives: With Family Alcohol Use: Rare Substance Use Type: Reports: None Smoking Status (MU): Former Smoker Have You Smoked in the Last Year: No Review of Systems Positive: Chills Cardiovascular: Negative Respiratory: Negative Gastrointestinal: Negative Genitourinary: Negative Negative: dysuria, flank pain, incontinence Positive: Other - Right low back pain. Pain into right leg. Tingling right lower leg/foot. Skin: Negative Negative: Rash Positive: Paresthesia. Negative: Weakness, Numbness All Other Systems Reviewed And Are Negative: Yes Physical Exam Triage Information Reviewed: Yes Vital Signs On Initial Exam: Initial Vitals Temp Pulse Resp BP Pulse Ox 99.3 F 95 16 155/103 99 02/18/19 12:41 02/18/19 12:41 02/18/19 12:41 02/18/19 12:41 02/18/19 12:41 Vital Signs Reviewed: Yes Appearance: Positive: Pain Distress - Pt. lying in bed, appears uncomfortable but nontoxic. Brother present. 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 Normal sensation and rectal tone. Musculoskeletal: Positive: Other - No midline vertebral tenderness. Pain over right SI joint and sciatic notch. 5/5 strength in bilateral LEs with flexion and doriflexion. Neurological: Positive: Normal, CN Intact II-III Psychiatric: Positive: Affect/Mood Appropriate Procedures - Sedation Patient Received Moderate/Deep Sedation with Procedure: No Diagnostics - Vital Signs Vital Signs Temp Pulse Resp BP Pulse Ox 02/18/19 12:41 99.3 F 95 16 155/103 99 - Laboratory Result Diagrams: 02/18/19 14:04 02/18/19 14:04 Lab Statement: Any lab studies that have been ordered have been reviewed, and results considered in the medical decision making process. Back Pain Course/Dx - Course Course Of Treatment: Patient presenting with worsening low back pain with history of disc herniation. Low-grade fever 99.6F, patient states she's had a sinus infection is currently on amoxicillin. She has no neurological deficits on exam or evidence of cauda equina syndrome. Normal rectal tone and sensation on exam. No urinary retention. Patient labs and urine obtained. Patient was given a dose of IV morphine, Toradol and Decadron for pain. Labs unremarkable other minimally elevated glucose. UA negative for infection but does show trace glucose and ketones. On reexamination patient's pain is down to a 4 out of 10 from a 10 out of 10 and she is feeling much better. 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 Advised patient to call her neurosurgeon on Wednesday for close follow-up. Patient will follow up with her PCP for glucose and urine. Patient to return to the ER for leg weakness, bowel or bladder incontinence or retention, saddle paresthesias or if concerned. Patient understands and agrees with plan. - Diagnoses Differential Diagnosis/HQI/PQRI: Positive: Herniated Disc, Strain, Sprain Provider Diagnoses: Back pain Discharge ED - Sign-Out/Discharge Documenting (check all that apply): Patient Departure - Discharge Plan Condition: Improved Disposition: HOME Prescriptions: HYDROcodone/ACETAMIN 5-325 MG* [[place] 5-325 TAB*] 1 tab PO Q6H PRN #12 tab MDD 4 PRN Reason: Pain - Moderate Patient Education Materials: Lumbar Disc Herniation (ED), Acute Low Back Pain ( ED) Referrals: Chika Calle [Primary Care Provider] - Additional Instructions: Call your neurosurgeon on Wednesday for a close follow up appointment and for further pain control Take pain medication as directed Warm compresses to low back Avoid heavy lifting Return to ER for leg weakness, loss of bowel or bladder function, decreased rectal sensation or if concerned - Billing Disposition and Condition Condition: IMPROVED Disposition: Home
[2019-02-18 14:21] LABS: ABS Eosinophils 0.1 10^3/ul (0-0.6); ABS Lymphocytes 2.8 10^3/ul (1.0-4.8); ABS Monocytes 0.6 10^3/ul (0-0.8); ABS Neutrophils 6.4 10^3/ul (1.5-7.7); Eosinophil % 0.8 %; Hematocrit 37 % (35-47); Hemoglobin 12.5 g/dL (12.0-16.0); Lymphocyte % 28.2 %; Mean Corpuscular HGB Conc 34 g/dL (31-36); Mean Corpuscular Hemoglobin 29 pg (27-31); Mean Corpuscular Volume 86 fL (80-97); Mean Platelet Volume 7.7 fL (7.4-10.4); Nucleated Red Blood Cells % 0.1; Platelet Count 269 10^3/uL (150-450); Red Blood Count 4.29 10^6 /uL (3.70-4.87); Red Cell Distribution Width 13 % (10-15); White Blood Count 9.9 10^3/uL (3.5-10.8)
[2019-02-18 14:38] LABS: Albumin 4.4 g/dL (3.2-5.2); Albumin/Globulin Ratio 1.6 (1-3); C Reactive Protein 1.03 mg/L (<8.01); Calcium 9.1 mg/dL (8.6-10.3); EGFR African American 130.1 (>60); EGFR Non-African American 107.5 (>60); Globulin 2.8 g/dL (2-4); Potassium 3.5 mmol/L (3.5-5.0); Total Bilirubin 0.7 mg/dL (0.2-1.0); Total Protein 7.2 g/dL (6.4-8.9)
[2019-02-18 15:02] LABS: Urine Appearance Cloudy; Urine Bilirubin Negative (Negative); Urine Blood Negative (Negative); Urine Color Yellow; Urine Glucose 1+(50 mg/dL) (Negative); Urine Ketones Trace (Negative); Urine Nitrite Negative (Negative); Urine Protein Negative (Negative); Urine Specific Gravity 1.023 (1.010-1.030); Urine Urobilinogen Negative (Negative)
[2019-02-18 16:07] VITALS: BP 137/82
== END 2019-02-18 16:06 | disposition home or self-care (01) ==
LOC: ED 12:12
DX: M54.9 Dorsalgia, unspecified (principal); F41.9 Anxiety disorder, unspecified; Z87.891 Personal history of nicotine dependence; Z79.899 Other long term (current) drug therapy
CPT/HCPCS: 36415; 80053; 81003; 85025; 86140; 96374; 96375; 99282; J1100; J1885; J2270